=== PATIENT | male | born 1990 | race American Indian/Alaskan Native ===

== ENCOUNTER 2017-06-06 03:21 | Emergency (ER) | payer OTHER ==
[2017-06-06] MEDS ORDERED: MORPHINE IM ONE (04:54)
[2017-06-06] MEDS ORDERED: BOOSTRIX IM ONE (04:55)
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
[2017-06-06] MEDS ORDERED: NACL 0.9% 1000 ML 1,000 ML IV ONE (07:04)
[2017-06-06] MEDS ORDERED: ZOFRAN IV ONE (07:04)
[2017-06-06] MEDS ORDERED: MORPHINE IV ONE (07:04)
[2017-06-06 08:57] VITALS: BP 139/85
== END 2017-06-06 08:30 | disposition other institution (70) ==
LOC: ED 03:21
DX: S02.69XA Fracture of mandible of other specified site, initial encounter for closed fracture (principal); S02.5XXA Fracture of tooth (traumatic), initial encounter for closed fracture; F17.200 Nicotine dependence, unspecified, uncomplicated; Y04.2XXA Assault by strike against or bumped into by another person, initial encounter; Y93.89 Activity, other specified; Y99.8 Other external cause status; Y92.009 Unspecified place in unspecified non-institutional (private) residence as the place of occurrence of the external cause
CPT/HCPCS: 70450; 70486; 72125; 90471; 90715; 96361; 96372; 96374; 96375; 99285; J2270; J2405; J7030

== ENCOUNTER 2017-08-09 08:50 | Emergency (ER) | payer SELFPAY ==
[2017-08-09 09:20] VITALS: BP 136/95
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
== END 2017-08-09 10:52 | disposition home or self-care (01) ==
LOC: ED 08:50
DX: K08.89 Other specified disorders of teeth and supporting structures (principal); R68.84 Jaw pain; F12.10 Cannabis abuse, uncomplicated; F17.200 Nicotine dependence, unspecified, uncomplicated; G47.00 Insomnia, unspecified; Z79.899 Other long term (current) drug therapy
CPT/HCPCS: 99282